=== PATIENT | male | born 1985 | race Caucasian/White ===

== ENCOUNTER 2022-12-14 12:42 | Emergency (ER) | payer SELFPAY ==
[2022-12-14] MEDS ORDERED: ONDANSETRON 4 MG/2 ML VIAL IVP STA (13:19)
[2022-12-14] MEDS ORDERED: SODIUM CHLORIDE 0.9% 1,000 ML IV STA (13:19)
--- NOTE | 2022-12-14 13:20 | ED Physician Documentation ---
PD HPI ABD PAIN - Stated complaint Stated Complaint: ABD PX - Chief complaint Chief Complaint: Abd Pain - History obtained from History obtained from: Patient - Additional information Additional information: Previously healthy 37-year-old gentleman has been sick for 3 days with vomiting and black diarrhea. He has had some abdominal pain but it is better now. No sick contacts or fevers with this. No history of abdominal surgeries. PD PAST MEDICAL HISTORY - Present Medications Home Medications: Ambulatory Orders Medication Instructions Recorded Confirmed Loperamide [Imodium] 2 mg PO QID PRN #10 cap 12/14/22 Ondansetron Odt [Zofran] 4 mg TL Q6H PRN #10 tablet 12/14/22 - Allergies Allergies/Adverse Reactions: Allergies Allergy/AdvReac Type Severity Reaction Status Date / Time No Known Drug Allergies Allergy Verified 12/14/22 13:01 PD ED PE NORMAL - Vitals Vital signs reviewed: Yes - General General: Alert and oriented X 3, No acute distress - Cardiac Cardiac: RRR, No murmur - Respiratory Respiratory: No respiratory distress, Clear bilaterally - Abdomen Abdomen: Normal bowel sounds, Soft, Other (Diminished bowel sounds but no tenderness or surgical signs.) - Derm Derm: Normal color, Warm and dry - Neuro Neuro: Alert and oriented X 3, Normal speech Results - Vitals Vitals: Vital Signs - 24 hr 12/14/22 12:56 Temperature 36.3 C L Heart Rate 68 Respiratory 18 Rate Blood Pressure 141/64 H O2 Saturation 99 Oxygen O2 Source Room air - Labs Labs: Laboratory Tests 12/14/22 12/14/22 12/14/22 13:35 14:53 14:53 WBC 14.2 H RBC 5.45 Hgb 16.3 Hct 48.9 MCV 89.7 MCH 29.9 MCHC 33.3 RDW 12.4 Plt Count 332 MPV 9.2 Neut # (Auto) 10.5 H Lymph # (Auto) 2.7 [place] # (Auto) 0.9 Eos # (Auto) 0.0 Baso # (Auto) 0.0 Absolute Nucleated RBC 0.00 Nucleated RBC % 0.0 Sodium 140 Potassium 3.5 Chloride 101 Carbon Dioxide 27 Anion Gap 12.0 BUN 19 Creatinine 0.9 Estimated GFR (MDRD) 96 Glucose 101 H Calcium 9.8 Total Bilirubin 1.3 H AST 38 ALT 57 Alkaline Phosphatase 72 Total Protein 9.1 H Albumin 4.9 Globulin 4.2 Albumin/Globulin Ratio 1.2 Lipase 75 H Urine Color DARK YELLOW Urine Clarity CLEAR Urine pH 5.5 Ur Specific [place] >=1.030 H Urine Protein TRACE Urine Glucose (UA) NEGATIVE Urine Ketones 40 H Urine Occult Blood NEGATIVE Urine Nitrite NEGATIVE Urine Bilirubin NEGATIVE Urine Urobilinogen 1 (NORMAL) Ur Leukocyte Esterase NEGATIVE Ur Microscopic Review NOT INDICATED Urine Culture Comments NOT INDICATED Procedures - General procedure General procedure: He was difficult for IV access related to history of IV drug use. Multiple nurses tried and failed. I was able to place a long 22-gauge IV in the right cephalic vein after ChloraPrep using real-time ultrasound guidance. PD Medical Decision Making - ED course ED course: 37-year-old gentleman with history of IV drug use presents for abdominal pain 3 days with nausea vomiting and diarrhea and darker stools. He did not have a bowel movement here so we were unable to guaiac but unlikely to be blood as his CBC shows a hemoglobin of 16.3. He has a nonspecific mild leukocytosis. CMP notable for mild elevated bilirubin at 1.3. Urinalysis with ketones and high specific gravity consistent with dehydration. CT of the abdomen pelvis unremarkable. Feeling better after IV fluids and Zofran. Departure - Departure Disposition: 01 Home, Self Care Clinical Impression: Diarrhea Qualifiers: Diarrhea type: presumed infectious Qualified Code(s): R19.7 - Diarrhea, unspecified Abdominal pain Qualifiers: Abdominal location: generalized Qualified Code(s): R10.84 - Generalized abdominal pain Vomiting Qualifiers: Vomiting type: unspecified Nausea presence: with nausea Qualified Code(s): R11.2 - Nausea with vomiting, unspecified Condition: Good Record reviewed to determine appropriate education?: Yes Instructions: ED Gastroenteritis Viral Prescriptions: Loperamide [Imodium] 2 mg PO QID PRN #10 cap PRN Reason: Diarrhea Ondansetron Odt [Zofran] 4 mg TL Q6H PRN #10 tablet PRN Reason: Nausea / Vomiting Comments: On your labs today you did have a minimal elevation in your bilirubin up to 1.3. Given your history reasonable to follow-up with your physician for screening for hepatitis on return home. Call your doctor to arrange a follow-up appointment, make the next available appointment. In the interim, return anytime if worse or if new symptoms develop.
[2022-12-14] MEDS ORDERED: iohexoL-300 100 ML VIAL ONE (13:33)
[2022-12-14 13:43] LABS: GLUCOSE, URINE (UA) NEGATIVE (NEGATIVE); KETONES,URINE (UA) 40 mg/dL (NEGATIVE); LEUKOCYTE ESTERASE, URINE NEGATIVE (NEGATIVE); NITRITE,URINE NEGATIVE (NEGATIVE); OCCULT BLOOD,URINE NEGATIVE (NEGATIVE); PH,URINE 5.5 PH (5.0-7.5); PROTEIN,URINE TRACE mg/dL (NEGATIVE); UROBILINOGEN,URINE 1 (NORMAL) E.U./dL (NORMAL)
[2022-12-14 13:47] LABS: BILIRUBIN,URINE NEGATIVE (NEGATIVE); CLARITY,URINE CLEAR (CLEAR); ICTOTEST,URINE NEGATIVE
[2022-12-14 14:59] LABS: BASOPHILS % (AUTO) 0.3 %; EOSINOPHILS % (AUTO) 0.1 %; HCT - HEMATOCRIT 48.9 % (42.0-52.0); HGB - HEMOGLOBIN 16.3 g/dL (14.0-18.0); LYMPHOCYTES # (AUTO) 2.7 10^3/uL (1.5-3.5); MEAN CORPUSCULAR HEMOGLOBIN 29.9 pg (27.0-31.0); MEAN CORPUSCULAR HGB CONC 33.3 g/dL (32.0-36.0); MEAN CORPUSCULAR VOLUME 89.7 fL (80.0-94.0); MEAN PLATELET VOLUME 9.2 fL (7.4-11.4); MONOCYTES # (AUTO) 0.9 10^3/uL (0.0-1.0); NEUTROPHILS # (AUTO) 10.5 10^3/uL (1.5-6.6); PLT - PLATELET COUNT 332 10^3/uL (130-450); RED BLOOD COUNT 5.45 10^6/uL (4.70-6.10); RED CELL DISTRIBUTION WIDTH 12.4 % (12.0-15.0); WHITE BLOOD COUNT 14.2 x10^3/uL (4.8-10.8)
[2022-12-14 15:17] LABS: ALBUMIN 4.9 g/dL (3.2-5.5); ALBUMIN/GLOBULIN RATIO 1.2 (1.0-2.2); BILIRUBIN,TOTAL 1.3 mg/dL (0.2-1.0); CALCIUM 9.8 mg/dL (8.5-10.3); CREATININE 0.9 mg/dL (0.6-1.2); POTASSIUM 3.5 mmol/L (3.5-5.0); TOTAL PROTEIN 9.1 g/dL (6.7-8.2)
[2022-12-14] MEDS ORDERED: LACTATED RINGERS 1,000 ML IV STA (15:24)
--- NOTE | 2022-12-14 15:47 | CT Report ---
PROCEDURE: ABDOMEN/PELVIS WO INDICATIONS: abd pain TECHNIQUE: A CT scan of the abdomen and pelvis was performed without the use of intravenous contrast. Images we re recorded and evaluated at appropriate window settings. Reformats: coronal and sagittal. For radiat ion dose reduction, the following was used: automated exposure control, adjustment of mA and/or kV ac cording to patient size. COMPARISON: None. FINDINGS: Image quality: Excellent. Lung bases and heart: Unremarkable. Liver: No solid mass. Gallbladder and biliary tree: No radiopaque stones or wall thickening. No biliary dilation. Spleen: No splenomegaly. Pancreas: No pancreatic ductal dilation. Adrenals: No adrenal nodule. Kidneys and ureters: No hydronephrosis. No renal cystic lesion which requires follow up. No solid mas s. Bowel and peritoneum: No bowel distension. No pathologic free fluid. Lymph nodes: No central or retroperitoneal adenopathy. Vessels: No infrarenal aortic aneurysm. PELVIS Reproductive organs: Unremarkable. Bladder: No wall thickness, accounting for underdistention. Pelvic lymph nodes: No pelvic adenopathy by size criteria. Bones: No aggressive osseous abnormality. Other: No significant ventral or inguinal hernia. IMPRESSION: No acute abnormality. No evidence of colitis or obstructing bowel mass. Reviewed by: Claudio Cole on 12/14/2022 3:45 PM PDT Approved by: Claudio Cole on 12/14/2022 3:45 PM PDT Station ID: [id number]
[2022-12-14 16:31] VITALS: BP 142/66
== END 2022-12-14 16:37 | disposition home or self-care (01) ==
LOC: ED 12:42
DX: R19.7 Diarrhea, unspecified (principal); R10.84 Generalized abdominal pain; R11.2 Nausea with vomiting, unspecified
CPT/HCPCS: 36415; 80053; 81001; 81003; 83690; 85025; 87086; 96361; 96374; 99284